=== PATIENT | female | born 1935 | race Caucasian/White ===

== ENCOUNTER 2018-05-21 20:49 | Inpatient (IN) | payer MEDICARE, BC ==
[~2018-05-21] VITALS: Ht 160 cm; Wt 56.7 kg
--- NOTE | ~2018-05-21 | CN ---
PATIENT NAME:KOFI CORTES MEDICAL RECORD: [id number] : 31 LOCATION:INOCENCIO2304 ADMIT DATE: 05/21/18 ACCOUNT: [id number] CONSULTING PHYSICIAN: GRAEME FOFANA MD REFERRING PHYSICIAN: TANNA CHOW MD DATE OF CONSULTATION: 05/26/2018 HISTORY OF PRESENT ILLNESS: An 83-year-old female with history of hypertension, dyslipidemia, admitted with CVA, is outside of window for TPA, is actually recovering fairly nicely, was found to have atrial fibrillation with RVR. This responded nicely to IV Cordarone. We are asked to see her concerning her cardiovascular status. PAST MEDICAL HISTORY: Includes; 1. History of hypertension. 2. Hyperlipidemia. 3. Hypothyroidism, on replacement. 4. Gouty arthritis. 5. Cerebrovascular disease as described above. ALLERGIES: None known. MEDICATIONS: Include Lotensin 20 every day, Pravachol 20 every day, amlodipine 5 every day, Paxil 40 every day, Neurontin a gram every morning, aspirin 81 every day, Synthroid 137 mcg every day. SOCIAL HISTORY: Lives here in [place]. Nonsmoker, nondrinker. Good family support. Previously able to take care of her ADLs. PHYSICAL EXAMINATION: GENERAL: Pleasant female in no acute distress. Some mild dysarthria and recovers well. VITAL SIGNS: Blood pressure 147/82, pulse 96 and regular currently. HEENT: Normocephalic, atraumatic. NECK: No bruits noted. HEART: Regular, II/ systolic ejection murmur. LUNGS: Clear. ABDOMEN: Soft, nontender. EXTREMITIES: Pulses 2+. No edema. IMPRESSION: Atrial fibrillation. Responding nicely to Cordarone. Given cerebrovascular accident, we will switch her to p.o. amiodarone. We will consider changing once of this antiplatelet to a NOAC given underlying atrial fibrillation. TRANSINT:[id number] Voice Confirmation ID: [id number] DOCUMENT ID: [id number] CONSULT REPORT [id number] KOFI CORTES GREGORY A MD at 1546 CC: [id number] DICTATION DATE: 05/26/18 1201 LDR RN: 05/26/18 1250 [place] [id number]
--- NOTE | ~2018-05-21 | CN ---
PATIENT NAME:KOFI CORTES MEDICAL RECORD: [id number] : 31 LOCATION:DAVE.2304 ADMIT DATE: 05/21/18 ACCOUNT: [id number] CONSULTING PHYSICIAN: ARABELLA CLEMENTS MD REFERRING PHYSICIAN: TANNA CHOW MD DATE OF CONSULTATION: 05/21/2018 This is emergency room consult at 10:30 at night. BRIEF HISTORY: Ms. Cortes is an inhabitant of an assisted living facility. She has a previous history of CVA affecting her right side. Her family cannot provide any more detail on that. She had sudden onset of right-sided lower facial droop today, followed by slurred speech and a hoarse voice and intermittent confusion. She was brought to the Emergency Room. She was outside the window for TPA. PAST MEDICAL HISTORY: Significant for severe hypertension. PHYSICAL EXAMINATION: VITAL SIGNS: Her blood pressure was 210 systolic over 90 diastolic. NEUROLOGIC: Reveals her to be awake, alert, following commands in all 4 extremities. She has a hoarse raspy voice. She has cerebellar pattern of speech and dysarthria. She has slightly right perioral droop and a mild right-sided Halima syndrome. RADIOLOGIC DATA: Her head CT shows no acute CVA, however, it is concerning for thrombosis in the right PICA artery. 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 At this point, we will place her on dual baby aspirin and loading dose of Plavix and observe her in the ICU. She will be n.p.o. due to aspiration concerns. We will observe her with serial neuro checks in the ICU and supportive care. I have discussed at length with her family her care and treatment and plans, and they agree with the care and treatment plan. TRANSINT:[id number] Voice Confirmation ID: [id number] DOCUMENT ID: [id number] ARABELLA CLEMENTS MD at 0853 CC: [id number] DICTATION DATE: 05/21/18 2317 QUILL WORKER: 05/22/18 0614 DIS IN 05/28/18 [place] [id number] [place] [id number]
--- NOTE | ~2018-05-21 | MORECARE ---
CASE MANAGEMENT DISCHARGE SUMMARY PATIENT: KOFI CORTES UNIT: [id number] ADM DATE: 05/21/18 AGE: 83 : 33 SEX: F ROOM/BED: D.2304 AUTHOR: MARIELLE,DOC PHYSICIAN: REFERRING PHYSICIAN: TANNA CHOW MD DATE OF SERVICE: 05/28/18 Discharge Plan Patient Name: KOFI CORTES Facility: [facility]:[place] : 1935 Planned Disposition: Inpatient Rehab Anticipated Discharge Date: Discharge Date: Expected LOS: Initial Reviewer: [email or web address] Initial Review Date: 05/22/2018 Generated: 05/28/18 1:57 pm Comments DCP- Discharge Planning Updated by [email or web address]: Nallely Bean on 05/28/18 11:[address] Patient Name: KOFI CORTES Admission Status: ER Accout number: [id number] Admission Date: 05-21-2018 : 1935 Admission Diagnosis:CEREBRAL INFARCTION, UNSPECIFIED Attending: TANNA CHOW Current LOS: 7 Anticipated DC Date: Planned Disposition: Inpatient Rehab Primary Insurance: MEDICARE A & B Discharge Planning Comments: CM spoke with patient and daughter at bedside. Plan is for patient to go to inpatient rehab for therapy today. Patient was very independent prior to admission. IMM explained and signed 05/28/18 @ 12:45. CM will continue to follow and assist with discharge planning / needs. Jeep Driver: Nallely Bean DCPIA - Discharge Planning Initial Assessment Updated by [email or web address]: Nallely Bean on 05/28/18 12:51 pm * Is the patient Alert and Oriented? Yes * How many steps to enter\exit or inside your home? * PCP Florina * Pharmacy [facility] * Preadmission Environment Home Alone * ADLs Independent * Equipment Oxygen * List name and contact numbers for known caregivers / representatives who currently or will assist patient after discharge: Shellie Romo) daughter [phone], Devyn Cortes son [phone]. Kaushal Cortes son [phone] * Verbal permission to speak to the caregivers and representatives has been obtained from the patient. Yes * Community resources currently utilized None * Additional services required to return to the preadmission environment? No * Can the patient safely return to the preadmission environment? Yes * Has this patient been hospitalized within the prior 30 days at any hospital? No Coverage Notice Reviewer: [email or web address] Therese Bean Notice Issued Date-Time: 05/28/2018 12:45 Notice Type: IM Discharge Notice Notice Delivered To: Family Member Relationship to Patient: Daughter Mill Operator Head Name: Shellie Ryan Delivery Method: HAND - Hand Delivered Viktoria Days: Prior Verbal Notification: Recipient Understood Notice: Yes Recipient Signature: Yes Med Rec Note Co-signed by Attending: Coverage Notice Comment: Last DP export: 05/28/18 11:49 Patient Name: KOFI CORTES Page 29083 at 1257 All edits/amendments must be made on the electronic document DICTATION DATE: 05/28/18 1257 SUPERSONIC ENGINEER: RIN 05/28/18 1257 RPT#: [id number] DC DATE: STATUS: ADM IN [facility] [address] [place] [address] END OF REPORT
--- NOTE | ~2018-05-21 | MORECARE ---
CASE MANAGEMENT DISCHARGE SUMMARY PATIENT: KOFI CORTES UNIT: [id number] ADM DATE: 05/21/18 AGE: 83 : 33 SEX: F ROOM/BED: D.2304 AUTHOR: MARIELLE,DOC PHYSICIAN: REFERRING PHYSICIAN: TANNA CHOW MD DATE OF SERVICE: 05/28/18 Discharge Plan Patient Name: KOFI CORTES Facility: [facility]:[place] : 1935 Planned Disposition: Inpatient Rehab Anticipated Discharge Date: Discharge Date: 05/28/2018 Expected LOS: Initial Reviewer: [email or web address] Initial Review Date: 05/22/2018 Generated: 05/28/18 5:28 pm Comments DCP- Discharge Planning Updated by [email or web address]: Nallely Bean on 05/28/18 11:[address] Patient Name: KOFI CORTES Admission Status: ER Accout number: [id number] Admission Date: 05-21-2018 : 1935 Admission Diagnosis:CEREBRAL INFARCTION, UNSPECIFIED Attending: TANNA CHOW Current LOS: 7 Anticipated DC Date: Planned Disposition: Inpatient Rehab Primary Insurance: MEDICARE A & B Discharge Planning Comments: CM spoke with patient and daughter at bedside. Plan is for patient to go to inpatient rehab for therapy today. Patient was very independent prior to admission. IMM explained and signed 05/28/18 @ 12:45. CM will continue to follow and assist with discharge planning / needs. Materials Inspector: Nallely Bean DCPIA - Discharge Planning Initial Assessment Updated by [email or web address]: Nallely Bean on 05/28/18 12:51 pm * Is the patient Alert and Oriented? Yes * How many steps to enter\exit or inside your home? * PCP Florina * Pharmacy [facility] * Preadmission Environment Home Alone * ADLs Independent * Equipment Oxygen * List name and contact numbers for known caregivers / representatives who currently or will assist patient after discharge: Shellie FORDE) daughter [phone], Devyn Cortes son [phone]. Kaushal Cortes son [phone] * Verbal permission to speak to the caregivers and representatives has been obtained from the patient. Yes * Community resources currently utilized None * Additional services required to return to the preadmission environment? No * Can the patient safely return to the preadmission environment? Yes * Has this patient been hospitalized within the prior 30 days at any hospital? No Coverage Notice Reviewer: [email or web address] Therese Bean Notice Issued Date-Time: 05/28/2018 12:45 Notice Type: IM Discharge Notice Notice Delivered To: Family Member Relationship to Patient: Daughter Inside B2B Sales Name: Shellie Ryan Delivery Method: HAND - Hand Delivered Viktoria Days: Prior Verbal Notification: Recipient Understood Notice: Yes Recipient Signature: Yes Med Rec Note Co-signed by Attending: Coverage Notice Comment: Last DP export: 05/28/18 12:06 Patient Name: KOFI CORTES Page 12636 at 1628 All edits/amendments must be made on the electronic document DICTATION DATE: 05/28/181627 OIL BURNER MECHANIC: RIN 05/28/181627 RPT#: [id number] DC DATE:05/28/18 STATUS: DIS IN [facility] [address] [place] [address] END OF REPORT
--- NOTE | ~2018-05-21 | MORECARE ---
CASE MANAGEMENT DISCHARGE SUMMARY PATIENT: KOFI CORTES UNIT: [id number] ADM DATE: 05/21/18 AGE: 83 : 33 SEX: F ROOM/BED: D.2304 AUTHOR: MARIELLE,DOC PHYSICIAN: REFERRING PHYSICIAN: TANNA CHOW MD DATE OF SERVICE: 05/28/18 Discharge Plan Patient Name: KOFI CORTES Facility: [facility]:[place] : 1935 Planned Disposition: Inpatient Rehab Anticipated Discharge Date: Discharge Date: Expected LOS: Initial Reviewer: [email or web address] Initial Review Date: 05/22/2018 Generated: 05/28/18 2:06 pm Comments DCP- Discharge Planning Updated by [id number]: Nallely Bean on 05/28/18 11:[address] Patient Name: KOFI CORTES Admission Status: ER Accout number: [id number] Admission Date: 05-21-2018 : 1935 Admission Diagnosis:CEREBRAL INFARCTION, UNSPECIFIED Attending: TANNA CHOW Current LOS: 7 Anticipated DC Date: Planned Disposition: Inpatient Rehab Primary Insurance: MEDICARE A & B Discharge Planning Comments: CM spoke with patient and daughter at bedside. Plan is for patient to go to inpatient rehab for therapy today. Patient was very independent prior to admission. IMM explained and signed 05/28/18 @ 12:45. CM will continue to follow and assist with discharge planning / needs. Concrete Craftsman: Nallely Bean DCPIA - Discharge Planning Initial Assessment Updated by [email or web address]: Nallely Bean on 05/28/18 12:51 pm * Is the patient Alert and Oriented? Yes * How many steps to enter\exit or inside your home? * PCP Florina * Pharmacy [facility] * Preadmission Environment Home Alone * ADLs Independent * Equipment Oxygen * List name and contact numbers for known caregivers / representatives who currently or will assist patient after discharge: Shellie Romo) daughter [phone], Devyn Cortes son [phone]. Kaushal Cortes son [phone] * Verbal permission to speak to the caregivers and representatives has been obtained from the patient. Yes * Community resources currently utilized None * Additional services required to return to the preadmission environment? No * Can the patient safely return to the preadmission environment? Yes * Has this patient been hospitalized within the prior 30 days at any hospital? No Coverage Notice Reviewer: [email or web address] Therese Bean Notice Issued Date-Time: 05/28/2018 12:45 Notice Type: IM Discharge Notice Notice Delivered To: Family Member Relationship to Patient: Daughter Reed Press Feeder Name: Shellie Ryan Delivery Method: HAND - Hand Delivered Viktoria Days: Prior Verbal Notification: Recipient Understood Notice: Yes Recipient Signature: Yes Med Rec Note Co-signed by Attending: Coverage Notice Comment: Last DP export: 05/28/18 11:57 Patient Name: KOFI CORTES Page 68434 at 1306 All edits/amendments must be made on the electronic document DICTATION DATE: 05/28/18 1306 ELECTRO MECHANICAL ENGINEER: RIN 05/28/18 1306 RPT#: [id number] DC DATE: STATUS: ADM IN [facility] [address] [place] [address] END OF REPORT
--- NOTE | ~2018-05-21 | EC ---
PATIENT:KOFI CORTES DATE OF SERVICE: 05/21/18 SEX: F MEDICAL RECORD: [id number] DATE OF : 31 LOCATION:[facility] D.230 AGE OF PATIENT: 83 ADMISSION DATE: 05/21/18 REFERRING PHYSICIAN: INTERPRETING PHYSICIAN: KARIN DALE MD ECHOCARDIOGRAM REPORT ECHO CHARGES 4 ECHO COMPLETE Date: 05/23/18 CLINICAL DIAGNOSIS: CVA ECHOCARDIOGRAPHIC MEASUREMENTS (adult normal given) AC root (d.<3.7cm) 3.5 cm LV Septum d (<1.2 cm> 1.5 cm Valve Excursion 1.4 cm LV Septum (systole) 1.8 cm Left Atria (s.<4.0cm> 3.6 cm LVPW d(<1.2cm) 1.0 cm RV (d.<2.3cm) 2.3 cm LVPW (sytole) 1.3 cm LV diastole(<5.6CM) 4.1 cm MV E-F(>70mm/sec) cm LV systole 3.2 cm LVOT Diameter 1.6 cm MV exc.(>10mm) cm Est.ejection fraction (50-75%) % DOPPLER: LVIT cm/sec A 170 cm/sec E 113 cm/sec LA cm/sec RVSP 31 mmHg LVOT 138 cm/sec AOP1/2T m/s Asc. Ao 233 cm/sec RVOT 111 cm/sec RA cm/sec PA 106 cm/sec AV Gradient Peak 21.7 mmHg AV Mean 13.5 mmHg AV Area 1.5 cm MV Gradient Peak 7.3 mmHg MV Mean 2.9 mmHg MV Area cm COMMENTS: Wrapper And Preserver: Flako [facility] Tour Sales Representative: 1 Dr. Dale TAPE# PACS Pericardial Effusion N DATE OF SERVICE: FINDINGS: 1. Left ventricular chamber size is within normal limits. Left ventricular systolic function is normal. Overall ejection fraction is estimated at 55%. 2. Left atrium, right atrium, and right ventricle chamber sizes are within normal limit. 3. Valvular structures have normal structure and motion. 4. Doppler interrogation reveals mild tricuspid regurgitation. No other valvular insufficiency or stenosis. Pulmonary systolic pressure is estimated at ECHOCARDIOGRAM REPORT [id number] KOFI CORTES 31 mmHg. 5. No evidence of pericardial effusion or left ventricular thrombus. TRANSINT:[id number] Voice Confirmation ID: [id number] DOCUMENT ID: [id number] KARIN DALE MD at 1324 CC: [id number] DICTATION DATE: 05/23/18 1347 INCLINOMETER TESTER: 05/23/18 1614 ADM IN [address] [place] [id number]
--- NOTE | ~2018-05-21 | MORECARE ---
CASE MANAGEMENT DISCHARGE SUMMARY PATIENT: KOFI CORTES UNIT: [id number] ADM DATE: 05/21/18 AGE: 83 : 33 SEX: F ROOM/BED: D.2304 AUTHOR: CAROLINE PALOMARES PHYSICIAN: REFERRING PHYSICIAN: TANNA CHOW MD DATE OF SERVICE: 05/28/18 Discharge Plan Patient Name: KOFI CORTES Facility: [facility]:[place] : 1935 Planned Disposition: Inpatient Rehab Anticipated Discharge Date: Discharge Date: Expected LOS: Initial Reviewer: [email or web address] Initial Review Date: 05/22/2018 Generated: 05/28/18 1:49 pm Patient Name: KOFI CORTES Page 45144 at 1249 All edits/amendments must be made on the electronic document DICTATION DATE: 05/28/181247 RN PACU: RIN 05/28/18 1248 RPT#: [id number] DC DATE: STATUS: ADM IN [facility] [address] [place] [address] END OF REPORT
[2018-05-21] MEDS ORDERED: ZYLOPRIM100 MG PO (21:07)
[2018-05-21] MEDS ORDERED: PAXIL40 MG PO (21:08)
[2018-05-21] MEDS ORDERED: KLOR-CON 88 MEQ PO (21:08)
[2018-05-21] MEDS ORDERED: LOTENSIN20 MG PO (21:09)
[2018-05-21] MEDS ORDERED: SYNTHROID137 MCG PO (21:09)
[2018-05-21] MEDS ORDERED: LUTEIN20 MG PO (21:10)
[2018-05-21] MEDS ORDERED: BAYER CHEWABLE81 MG PO (21:10)
[2018-05-21] MEDS ORDERED: VITAMIN D31000 UNIT PO (21:10)
[2018-05-21] MEDS ORDERED: GABAPENTIN100 MG PO (21:10)
[2018-05-21] MEDS ORDERED: PRAVACHOL20 MG PO (21:11)
[2018-05-21] MEDS ORDERED: NORVASC5 MG PO (21:11)
[2018-05-21 21:16] LABS: BASOPHILS 0.3 % (0-2); EOSINOPHILS 3.7 % (0-7); HEMATOCRIT 39.9 % (36.0-48.0); HEMOGLOBIN 12.8 g/dL (12-16); IMMATURE GRANULOCYTES 0.2 % (0-5); LYMPHOCYTES 26.7 % (15-50); MCH 30.2 pg (26.0-34.0); MCHC 32.1 g/dL (31.0-37.0); MCV 94.1 fL (80.0-100.0); MEAN PLATELET VOLUME 10.9 fL (7.4-10.4); MONOCYTES 9.5 % (2-11); NEUTROPHILS 59.6 % (40-80); PLATELET COUNT 214 10x3/uL (130-400); RBC 4.24 10x6/uL (4.00-5.40); RDW 14.4 % (11.5-14.5); WBC 6.2 10x3/uL (4.8-10.8)
[2018-05-21 21:21] VITALS: BP 212/93
[2018-05-21 21:25] LABS: APTT 27.9 SECONDS (22.8-39.4); INR 0.89 (0.85-1.17); PROTIME 11.6 SECONDS (11.6-15.0)
[2018-05-21 21:45] LABS: ALBUMIN 3.7 g/dL (3.4-5.0); ALKALINE PHOSPHATASE 78 U/L (46-116); ALT (SGPT) 11 U/L (10-68); BILIRUBIN - TOTAL 0.23 mg/dL (0.2-1.3); CALC OSMOLALITY 284 mosm/kg (275-300); CALCIUM 9.9 mg/dL (8.5-10.1); CARBON DIOXIDE 31.9 mmol/L (21.0-32.0); CHLORIDE - SERUM 101 mmol/L (98-107); CKMB 1.5 U/L (0.0-3.6); CREATINE KINASE 56 UL (21-215); CREATININE - SERUM 0.8 mg/dL (0.6-1.3); GLUCOSE 90 mg/dL (74-106); MAGNESIUM - SERUM 1.5 mg/dL (1.8-2.4); POTASSIUM - SERUM 3.7 mmol/L (3.5-5.1); PROTEIN - SERUM 8.3 g/dL (6.4-8.2); SODIUM 142 mmol/L (136-145); THYROID STIMULATING HORMONE 2.04 uIU/mL (0.36-3.74); UREA NITROGEN 17 mg/dL (7-18); eGFR NON AFRICAN AMERICAN 72 mL/min (90-120)
[2018-05-21 21:47] LABS: TROPONIN-I < 0.017 ng/mL (0.000-0.060)
[2018-05-22] VITALS (23 sets, daily range): BP systolic 143–237; BP diastolic 75–124; Ht 160 cm; Wt 56.7 kg
[2018-05-22 03:04] LABS: APPEARANCE CLEAR (CLEAR); BILIRUBIN NEGATIVE (NEGATIVE); COLOR YELLOW (YELLOW); GLUCOSE NEGATIVE (NEGATIVE); KETONE NEGATIVE (NEGATIVE); NITRITE NEGATIVE (NEGATIVE); PROTEIN 2+ mg/dL (NEGATIVE); SPECIFIC GRAVITY 1.015 (1.005-1.020); UROBILINOGEN NORMAL (NORMAL)
[2018-05-22 04:09] LABS: BASOPHILS 0.4 % (0-2); EOSINOPHILS 2.9 % (0-7); HEMATOCRIT 36.3 % (36.0-48.0); HEMOGLOBIN 11.9 g/dL (12-16); IMMATURE GRANULOCYTES 0.3 % (0-5); LYMPHOCYTES 22.9 % (15-50); MCH 30.2 pg (26.0-34.0); MCHC 32.8 g/dL (31.0-37.0); MEAN PLATELET VOLUME 11.5 fL (7.4-10.4); MONOCYTES 12.1 % (2-11); NEUTROPHILS 61.4 % (40-80); PLATELET COUNT 222 10x3/uL (130-400); RBC 3.94 10x6/uL (4.00-5.40); RDW 14.2 % (11.5-14.5); WBC 7.2 10x3/uL (4.8-10.8)
[2018-05-22 04:20] LABS: INR 0.93 (0.85-1.17); PROTIME 11.9 SECONDS (11.6-15.0)
[2018-05-22 04:26] LABS: MCV 92.1 fL (80.0-100.0)
[2018-05-22 04:30] LABS: CALC OSMOLALITY 279 mosm/kg (275-300); CALCIUM 9.9 mg/dL (8.5-10.1); CARBON DIOXIDE 31.2 mmol/L (21.0-32.0); CHLORIDE - SERUM 100 mmol/L (98-107); CHOL - HDL RATIO 2.7 ratio (2.3-4.1); CHOLESTEROL, TOTAL 200 mg/dL (0-200); CREATININE - SERUM 0.6 mg/dL (0.6-1.3); GLUCOSE 95 mg/dL (74-106); HDL CHOLESTEROL 73 mg/dL (32-96); LDL CHOLESTEROL 110 mg/dL (0-100); LDL-HDL RATIO 1.5 ratio (1.5-3.5); MAGNESIUM - SERUM 1.3 mg/dL (1.8-2.4); POTASSIUM - SERUM 3.4 mmol/L (3.5-5.1); SODIUM 140 mmol/L (136-145); TRIGLYCERIDE 85 mg/dL (30-200); UREA NITROGEN 14 mg/dL (7-18); eGFR NON AFRICAN AMERICAN > 90 mL/min (90-120)
[2018-05-22 15:54] LABS: MAGNESIUM - SERUM 2.4 mg/dL (1.8-2.4); POTASSIUM - SERUM 4.1 mmol/L (3.5-5.1)
[2018-05-23] VITALS (13 sets, daily range): BP systolic 159–198; BP diastolic 77–131
[2018-05-23 03:15] LABS: BASOPHILS 0.1 % (0-2); EOSINOPHILS 1.3 % (0-7); HEMOGLOBIN 11.4 g/dL (12-16); IMMATURE GRANULOCYTES 0.1 % (0-5); MCH 29.6 pg (26.0-34.0); MCHC 32.6 g/dL (31.0-37.0); MCV 90.9 fL (80.0-100.0); MEAN PLATELET VOLUME 10.9 fL (7.4-10.4); MONOCYTES 8.5 % (2-11); PLATELET COUNT 203 10x3/uL (130-400); RBC 3.85 10x6/uL (4.00-5.40); RDW 14.7 % (11.5-14.5); WBC 7.9 10x3/uL (4.8-10.8)
[2018-05-23 03:39] LABS: % SATURATION 22 % (15-55); IRON 59 ug/dl (35-150); TOTAL IRON BIND CAPACITY 261 ug/dl (260-445); UNSAT IRON BIND CAPACITY 202 ug/dl (150-375)
[2018-05-23 03:56] LABS: ALBUMIN 2.9 g/dL (3.4-5.0); ALKALINE PHOSPHATASE 56 U/L (46-116); ALT (SGPT) 10 U/L (10-68); BILIRUBIN - TOTAL 0.39 mg/dL (0.2-1.3); CALCIUM 8.7 mg/dL (8.5-10.1); CHLORIDE - SERUM 100 mmol/L (98-107); CHOL - HDL RATIO 2.5 ratio (2.3-4.1); CHOLESTEROL, TOTAL 174 mg/dL (0-200); CREATININE - SERUM 0.6 mg/dL (0.6-1.3); FERRITIN 55 ng/mL (3-244); GLUCOSE 100 mg/dL (74-106); HDL CHOLESTEROL 71 mg/dL (32-96); LDL CHOLESTEROL 90 mg/dL (0-100); LDL-HDL RATIO 1.3 ratio (1.5-3.5); MAGNESIUM - SERUM 1.8 mg/dL (1.8-2.4); POTASSIUM - SERUM 3.9 mmol/L (3.5-5.1); PROTEIN - SERUM 6.7 g/dL (6.4-8.2); SODIUM 136 mmol/L (136-145); THYROID STIMULATING HORMONE 1.62 uIU/mL (0.36-3.74); TRIGLYCERIDE 66 mg/dL (30-200); eGFR NON AFRICAN AMERICAN > 90 mL/min (90-120)
[2018-05-23 03:59] LABS: CALC OSMOLALITY 270 mosm/kg (275-300); CARBON DIOXIDE 22.7 mmol/L (21.0-32.0); UREA NITROGEN 10 mg/dL (7-18)
[2018-05-24 03:00] VITALS: BP 155/51
[2018-05-24 07:00] VITALS: BP 191/94
[2018-05-24 11:00] VITALS: BP 180/87
[2018-05-24 15:00] VITALS: BP 169/77
[2018-05-24 19:00] VITALS: BP 184/92
[2018-05-24 23:00] VITALS: BP 166/74
[2018-05-25] VITALS (9 sets, daily range): BP systolic 141–191; BP diastolic 75–105
[2018-05-26] VITALS (12 sets, daily range): BP systolic 130–194; BP diastolic 69–140
[2018-05-27 04:45] LABS: BASOPHILS 0.1 % (0-2); EOSINOPHILS 0.6 % (0-7); HEMATOCRIT 33.6 % (36.0-48.0); HEMOGLOBIN 10.9 g/dL (12-16); IMMATURE GRANULOCYTES 0.4 % (0-5); LYMPHOCYTES 7.1 % (15-50); MCH 29.9 pg (26.0-34.0); MCHC 32.4 g/dL (31.0-37.0); MCV 92.1 fL (80.0-100.0); MEAN PLATELET VOLUME 11.7 fL (7.4-10.4); MONOCYTES 17.4 % (2-11); NEUTROPHILS 74.4 % (40-80); PLATELET COUNT 198 10x3/uL (130-400); RBC 3.65 10x6/uL (4.00-5.40); WBC 8.5 10x3/uL (4.8-10.8)
[2018-05-27 04:53] LABS: CALC OSMOLALITY 277 mosm/kg (275-300); CALCIUM 9.3 mg/dL (8.5-10.1); CARBON DIOXIDE 26.9 mmol/L (21.0-32.0); CHLORIDE - SERUM 101 mmol/L (98-107); CREATININE - SERUM 0.7 mg/dL (0.6-1.3); GLUCOSE 113 mg/dL (74-106); POTASSIUM - SERUM 3.4 mmol/L (3.5-5.1); SODIUM 139 mmol/L (136-145); UREA NITROGEN 10 mg/dL (7-18); eGFR NON AFRICAN AMERICAN 84 mL/min (90-120)
[2018-05-27 07:00] VITALS: BP 178/141
[2018-05-27 11:00] VITALS: BP 167/89
[2018-05-27 15:00] VITALS: BP 151/81
[2018-05-27 19:00] VITALS: BP 127/69
[2018-05-27 21:01] VITALS: BP 191/94
[2018-05-27 23:00] VITALS: BP 143/88
[2018-05-28 03:00] VITALS: BP 136/73
[2018-05-28 06:21] LABS: BASOPHILS 0 % (0-2); EOSINOPHILS 0 % (0-7); HEMATOCRIT 32.6 % (36.0-48.0); HEMOGLOBIN 10.4 g/dL (12-16); IMMATURE GRANULOCYTES 0.2 % (0-5); LYMPHOCYTES 3.7 % (15-50); MCH 29.6 pg (26.0-34.0); MCHC 31.9 g/dL (31.0-37.0); MCV 92.9 fL (80.0-100.0); MEAN PLATELET VOLUME 11.5 fL (7.4-10.4); MONOCYTES 4.3 % (2-11); NEUTROPHILS 91.8 % (40-80); PLATELET COUNT 202 10x3/uL (130-400); RBC 3.51 10x6/uL (4.00-5.40); RDW 14.9 % (11.5-14.5); WBC 9.5 10x3/uL (4.8-10.8)
[2018-05-28 06:56] LABS: ALBUMIN 2.5 g/dL (3.4-5.0); ANION GAP 13.7 mmol/L (8-16); BILIRUBIN - TOTAL 0.33 mg/dL (0.2-1.3); CALCIUM 9.6 mg/dL (8.5-10.1); CARBON DIOXIDE 27.1 mmol/L (21.0-32.0); PROTEIN - SERUM 6.7 g/dL (6.4-8.2)
[2018-05-28 06:57] LABS: CREATININE - SERUM 0.9 mg/dL (0.6-1.3)
[2018-05-28 06:58] LABS: POTASSIUM - SERUM 4.8 mmol/L (3.5-5.1)
[2018-05-28 07:00] VITALS: BP 136/73
[2018-05-28 14:00] VITALS: BP 133/70
[2018-05-28] MEDS ORDERED: AMIODARONE HCL200 MG PO (15:51)
[2018-05-29] MEDS ORDERED: ELIQUIS2.5 MG PO (13:12)
[2018-05-29] MEDS ORDERED: VOLTAREN100 GM TOPICAL (13:14)
[2018-05-29] MEDS ORDERED: SOLU-MEDRO40 MG/1 M1 IV (13:15)
[2018-05-29] MEDS ORDERED: PANTOPRAZOLE (13:16)
[2018-05-29] MEDS ORDERED: PANTOPRAZOLE IV (13:16)
[2018-05-29] MEDS ORDERED: ARTIFICIAL TEAR15 ML EACH EYE (13:17)
[2018-05-29] MEDS ORDERED: ULTRAM50 MG PO (13:17)
== END 2018-05-28 15:57 | DRG 65 ==
LOC: D.ER 20:49 → D.MS 23:05 → D.ICU 23:05
PROVIDERS: Family Medicine; Family Medicine Adult Medicine
DX: I63.9 Cerebral infarction, unspecified (principal); F32.1 Major depressive disorder, single episode, moderate; I69.392 Facial weakness following cerebral infarction; I48.91 Unspecified atrial fibrillation; I10 Essential (primary) hypertension; K21.9 Gastro-esophageal reflux disease without esophagitis; M10.9 Gout, unspecified; E03.9 Hypothyroidism, unspecified; R47.1 Dysarthria and anarthria

== ENCOUNTER 2018-05-28 15:29 | Inpatient (IN) | payer MEDICARE, BC ==
[~2018-05-28] VITALS: Ht 142.2 cm; Wt 56.7 kg
[~2018-05-28 15:29] MED LIST: BAYER CHEWABLE81 MG PO; GABAPENTIN100 MG PO; KLOR-CON 88 MEQ PO; LOTENSIN20 MG PO; LUTEIN20 MG PO; NORVASC5 MG PO; PAXIL40 MG PO; PRAVACHOL20 MG PO; SYNTHROID137 MCG PO; VITAMIN D31000 UNIT PO; ZYLOPRIM100 MG PO
[2018-05-28] MEDS ORDERED: AMIODARONE HCL200 MG PO (15:51)
[2018-05-28 19:00] VITALS: BP 133/68
[2018-05-28 19:47] VITALS: BP 133/68; BMI 28.0
[2018-05-29 06:49] LABS: BASOPHILS 0 % (0-2); EOSINOPHILS 0 % (0-7); HEMATOCRIT 33.6 % (36.0-48.0); HEMOGLOBIN 11.2 g/dL (12-16); IMMATURE GRANULOCYTES 0.2 % (0-5); LYMPHOCYTES 2.9 % (15-50); MCH 30.6 pg (26.0-34.0); MCHC 33.3 g/dL (31.0-37.0); MCV 91.8 fL (80.0-100.0); MEAN PLATELET VOLUME 11.3 fL (7.4-10.4); MONOCYTES 6.4 % (2-11); NEUTROPHILS 90.5 % (40-80); RBC 3.66 10x6/uL (4.00-5.40); WBC 11.6 10x3/uL (4.8-10.8)
[2018-05-29 06:50] LABS: PLATELET COUNT 279 10x3/uL (130-400)
[2018-05-29 07:02] LABS: ANION GAP 14.2 mmol/L (8-16); CALCIUM 10.6 mg/dL (8.5-10.1); CARBON DIOXIDE 26.4 mmol/L (21.0-32.0); CREATININE - SERUM 1.1 mg/dL (0.6-1.3); POTASSIUM - SERUM 4.6 mmol/L (3.5-5.1)
[2018-05-29 08:00] VITALS: BP 150/102
[2018-05-29 11:53] VITALS: Ht 142.2 cm; Wt 56.7 kg
[2018-05-29] MEDS ORDERED: ELIQUIS2.5 MG PO (13:12)
[2018-05-29] MEDS ORDERED: VOLTAREN100 GM TOPICAL (13:14)
[2018-05-29] MEDS ORDERED: SOLU-MEDRO40 MG/1 M1 IV (13:15)
[2018-05-29] MEDS ORDERED: PANTOPRAZOLE (13:16)
[2018-05-29] MEDS ORDERED: PANTOPRAZOLE IV (13:16)
[2018-05-29] MEDS ORDERED: ULTRAM50 MG PO (13:17)
[2018-05-29] MEDS ORDERED: ARTIFICIAL TEAR15 ML EACH EYE (13:17)
[2018-05-29 19:00] VITALS: BP 177/83
[2018-05-30 05:26] LABS: BASOPHILS 0 % (0-2); EOSINOPHILS 0 % (0-7); HEMATOCRIT 35.2 % (36.0-48.0); HEMOGLOBIN 11.5 g/dL (12-16); IMMATURE GRANULOCYTES 0.5 % (0-5); LYMPHOCYTES 4.3 % (15-50); MCH 29.8 pg (26.0-34.0); MCHC 32.7 g/dL (31.0-37.0); MCV 91.2 fL (80.0-100.0); MEAN PLATELET VOLUME 11.3 fL (7.4-10.4); MONOCYTES 4.9 % (2-11); NEUTROPHILS 90.3 % (40-80); PLATELET COUNT 310 10x3/uL (130-400); RBC 3.86 10x6/uL (4.00-5.40); RDW 14.9 % (11.5-14.5)
[2018-05-30 05:27] LABS: WBC 7.9 10x3/uL (4.8-10.8)
[2018-05-30 06:04] LABS: ANION GAP 17.8 mmol/L (8-16); CALCIUM 10.2 mg/dL (8.5-10.1); CARBON DIOXIDE 24.2 mmol/L (21.0-32.0); CREATININE - SERUM 0.9 mg/dL (0.6-1.3)
[2018-05-30 08:00] VITALS: BP 175/104
[2018-05-30 19:00] VITALS: BP 194/89
[2018-05-31 07:25] LABS: CALC OSMOLALITY 288 mosm/kg (275-300); CALCIUM 10.2 mg/dL (8.5-10.1); CHLORIDE - SERUM 103 mmol/L (98-107); CREATININE - SERUM 0.7 mg/dL (0.6-1.3); GLUCOSE 104 mg/dL (74-106); SODIUM 139 mmol/L (136-145); UREA NITROGEN 43 mg/dL (7-18); eGFR NON AFRICAN AMERICAN 84 mL/min (90-120)
[2018-05-31 07:27] LABS: CARBON DIOXIDE 30.3 mmol/L (21.0-32.0); POTASSIUM - SERUM 4.3 mmol/L (3.5-5.1)
[2018-05-31 08:55] VITALS: BP 177/87
[2018-05-31 23:16] VITALS: BP 163/81
[2018-06-01 08:00] VITALS: BP 169/78
[2018-06-01 20:47] VITALS: BP 121/74
[2018-06-02 06:50] LABS: BASOPHILS 0 % (0-2); EOSINOPHILS 2.8 % (0-7); HEMATOCRIT 31.4 % (36.0-48.0); IMMATURE GRANULOCYTES 0.7 % (0-5); LYMPHOCYTES 14.1 % (15-50); MCH 29.2 pg (26.0-34.0); MCHC 31.8 g/dL (31.0-37.0); MCV 91.8 fL (80.0-100.0); MEAN PLATELET VOLUME 10.1 fL (7.4-10.4); MONOCYTES 16.2 % (2-11); NEUTROPHILS 66.2 % (40-80); PLATELET COUNT 281 10x3/uL (130-400); RBC 3.42 10x6/uL (4.00-5.40); RDW 14.7 % (11.5-14.5); WBC 8.1 10x3/uL (4.8-10.8)
[2018-06-02 07:12] LABS: CALC OSMOLALITY 284 mosm/kg (275-300); CALCIUM 9.5 mg/dL (8.5-10.1); CHLORIDE - SERUM 103 mmol/L (98-107); CREATININE - SERUM 0.7 mg/dL (0.6-1.3); GLUCOSE 91 mg/dL (74-106); POTASSIUM - SERUM 3.9 mmol/L (3.5-5.1); SODIUM 141 mmol/L (136-145); UREA NITROGEN 24 mg/dL (7-18); eGFR NON AFRICAN AMERICAN 84 mL/min (90-120)
[2018-06-02 08:03] VITALS: BP 167/85
[2018-06-02 19:02] VITALS: BP 203/88
[2018-06-03 07:55] VITALS: BP 185/92
[2018-06-03 19:30] VITALS: BP 183/90
[2018-06-04 06:13] LABS: BASOPHILS 0 % (0-2); HEMATOCRIT 34.2 % (36.0-48.0); IMMATURE GRANULOCYTES 0.7 % (0-5); LYMPHOCYTES 10.3 % (15-50); MCH 29.7 pg (26.0-34.0); MCHC 32.2 g/dL (31.0-37.0); MCV 92.4 fL (80.0-100.0); MEAN PLATELET VOLUME 10.2 fL (7.4-10.4); MONOCYTES 13.4 % (2-11); NEUTROPHILS 72.6 % (40-80); PLATELET COUNT 295 10x3/uL (130-400); RDW 14.8 % (11.5-14.5)
[2018-06-04 06:19] LABS: WBC 10.7 10x3/uL (4.8-10.8)
[2018-06-04 06:24] LABS: ANION GAP 10.7 mmol/L (8-16); CALCIUM 9.7 mg/dL (8.5-10.1); CARBON DIOXIDE 31.9 mmol/L (21.0-32.0); CREATININE - SERUM 0.8 mg/dL (0.6-1.3); POTASSIUM - SERUM 3.6 mmol/L (3.5-5.1)
[2018-06-04 08:00] VITALS: BP 160/80
[2018-06-04 19:45] VITALS: BP 154/77
[2018-06-05 08:00] VITALS: BP 145/73
--- NOTE | 2018-06-05 15:04 | RHP ---
PATIENT: KOFI CORTES MEDICAL RECORD: [id number] ACCOUNT: [id number] LOCATION:[facility] : [birth year] ADMISSION DATE: 05/28/18 REHABILITATION HISTORY AND PHYSICAL EXAMINATION POST ADMISSION PHYSICIAN EXAMINATION ADMITTING DIAGNOSIS: Cerebrovascular accident with a small area of acute and subacute ischemia in the left frontal lobe. HISTORY OF PRESENT ILLNESS: The patient admitted to the acute rehab for CVA. She has got a small area of acute and subacute ischemia in the left frontal lobe with right body involvement. She is an 83-year-old female who presented to the ED with right-sided weakness, slurred and garbled speech. She had a neurosurgery consult. They obtained an MRI that showed what appeared to be ischemia in the left frontal lobe. No other intracranial processes were noted. She was admitted to the ICU and remained there. During her acute hospital stay, she developed AFib and was placed on amiodarone drip. She had been evaluated by PT, OT, and speech therapy during her acute stay. She has past medical history of hypertension, gout, depression, thyroid problems, back pain, vitamin D deficiency, and gastroesophageal reflux disease. She continues to have apraxia in the right upper extremity with increased weakness in left extremity also, right more so than left. She has got expressive aphasia, oropharyngeal dysphagia, Broca's aphasia, and aphasia of speech. She is being complaining of some double vision. She has got AFib with tachycardia, currently on telemetry. She is receiving IV Solu-Medrol and increased amounts of anticoagulation therapy. She is getting increased pain, debility, and impaired mobility with gout flareup and self-care deficit. These are all barriers to her discharging back home. She lives alone in an apartment at [facility], was completely independent with her ADLs and mobility prior to this acute hospitalization. Currently, min assist to mod assist with her ADLs and mod assist to total assist with her mobility. She and her family plan to return back to her apartment and hopefully be set up with home health. COMORBIDITIES: In this patient, include oropharyngeal dysphagia, Broca's aphasia, aphasia of speech, acute CVA, facial droop, hypertension, gastroesophageal reflux disease, hypothyroidism, and right upper extremity apraxia. PAST MEDICAL HISTORY: Significant for hypertension, chronic back pain, gout, depression, thyroid problems, vitamin D deficiency, lipids, and gastroesophageal reflux disease. PAST SURGICAL HISTORY: Includes colon surgery and shoulder surgery. ALLERGIES: No known drug allergies. CURRENT MEDICATIONS: Include beta carotene and multivitamin daily; Synthroid 25 mcg daily along with 112, for total dose of 137 mcg daily; Pravachol 20 mg daily; potassium 8 mEq daily; Paxil 40 mg daily; Neurontin 100 mg daily; vitamin D 1000 units daily; Lotensin 20 mg daily; aspirin chewable 81 mg daily; Norvasc 5 mg daily; and allopurinol 100 mg daily. She is currently on an electrolyte replacement protocol. Amiodarone 200 mg b.i.d., polyethylene glycol 17 grams in 8 ounce of water daily and she is going to be on Eliquis 2.5 mg b.i.d. HABITS: No alcohol or tobacco use. HISTORY AND PHYSICAL [id number] SOPHIAKOFI FAMILY HISTORY: Noncontributory. SOCIAL HISTORY: The patient hopes to return back home per her family's desires. REVIEW OF SYSTEMS: GENERAL: The patient is having some problems with expressive aphasia at this time. PHYSICAL EXAMINATION: VITAL SIGNS: Stable. She is afebrile. GENERAL: A thin female, in no acute distress, alert upon exam. HEENT: Normocephalic and atraumatic. Mucosa moist. NECK: Supple. No lymphadenopathy. LUNGS: Clear at this time. HEART: Irregular rate and rhythm. ABDOMEN: Benign. EXTREMITIES: No clubbing, cyanosis, or edema. NEUROLOGIC: She does have noted weakness, especially on her right side. LABORATORY DATA: Her white count is 11.6, H&H of 11.2 and 33.6, and platelet count is 279. Her sodium is 138, potassium 4.6, BUN and creatinine of 45 and 1.1, and blood sugar is noted to be 135. ASSESSMENT: This is an 83-year-old female patient admitted to the rehab with working diagnosis of CVA, which is of new onset. The patient has potential to make improvement. We will institute the following multidisciplinary therapies including, but not limited to physical, occupational, respiratory, speech, nutritional services, prosthetics, and orthotics. Given her complex medical condition and risk for more complications, rehabilitation services cannot be provided at a low level of care such as nursing home facility. PLAN: 1. Admit to [facility] for intensive inpatient therapy to include the following disciplines: A. Physical therapy to improve gait, all transfer skills, and bed mobility to modified independent level. B. Occupational therapy to improve activities of daily living to a modified independent level. C. Case management to assist with discharge planning and placement options. D. Nutrition to assist with nutritional needs. E. Rehabilitation nursing to assist in monitoring the patient's underlying medical conditions and to assist with any type of bowel or bladder management. 2. The patient's current medications and medical care will be continued. We will get her back on medications that she was on upstairs in the ICU. 3. We will follow up in the a.m. and I have talked to her family. TRANSINT:[id number] Voice Confirmation ID: [id number] DOCUMENT ID: [id number] FAWAD notes whether there has been none or any medical/functional change since admission: - No change since prescreen. HISTORY AND PHYSICAL [id number] KOFI CORTES attests patient continues to be appropriate for IRF: - Continues to be appropriate. ANIRUDH WELCH MD at 1504 CC: [id number] DICTATION DATE: 05/29/18 1249 INFORMATICS PHYSICIAN LIAISON: 05/29/[address] [facility] [address] [place] [address]
[2018-06-05 19:00] VITALS: BP 177/83
[2018-06-06 07:18] LABS: BASOPHILS 0.1 % (0-2); EOSINOPHILS 0.1 % (0-7); HEMATOCRIT 32.4 % (36.0-48.0); HEMOGLOBIN 10.6 g/dL (12-16); IMMATURE GRANULOCYTES 0.6 % (0-5); LYMPHOCYTES 5.1 % (15-50); MCHC 32.7 g/dL (31.0-37.0); MCV 91.8 fL (80.0-100.0); MEAN PLATELET VOLUME 9.9 fL (7.4-10.4); MONOCYTES 2.8 % (2-11); NEUTROPHILS 91.3 % (40-80); PLATELET COUNT 298 10x3/uL (130-400); RBC 3.53 10x6/uL (4.00-5.40); RDW 15.1 % (11.5-14.5); WBC 9.3 10x3/uL (4.8-10.8)
[2018-06-06 07:31] LABS: ANION GAP 13.1 mmol/L (8-16); CALCIUM 9.6 mg/dL (8.5-10.1); CREATININE - SERUM 1.1 mg/dL (0.6-1.3); POTASSIUM - SERUM 4.1 mmol/L (3.5-5.1)
[2018-06-06 08:00] VITALS: BP 174/82
[2018-06-06 19:24] VITALS: BP 176/89
[2018-06-07 08:16] VITALS: BP 166/59
[2018-06-07 20:00] VITALS: BP 156/81
[2018-06-08 08:00] VITALS: BP 157/78
[2018-06-08 21:21] VITALS: BP 135/79
[2018-06-09 06:07] LABS: BASOPHILS 0 % (0-2); EOSINOPHILS 0.3 % (0-7); HEMATOCRIT 32.6 % (36.0-48.0); HEMOGLOBIN 10.4 g/dL (12-16); IMMATURE GRANULOCYTES 0.3 % (0-5); LYMPHOCYTES 5.9 % (15-50); MCH 29.2 pg (26.0-34.0); MCHC 31.9 g/dL (31.0-37.0); MCV 91.6 fL (80.0-100.0); MEAN PLATELET VOLUME 9.9 fL (7.4-10.4); MONOCYTES 6.7 % (2-11); NEUTROPHILS 86.8 % (40-80); PLATELET COUNT 331 10x3/uL (130-400); RBC 3.56 10x6/uL (4.00-5.40); WBC 11.9 10x3/uL (4.8-10.8)
[2018-06-09 06:18] LABS: ANION GAP 10.9 mmol/L (8-16); CALCIUM 10.2 mg/dL (8.5-10.1); POTASSIUM - SERUM 3.9 mmol/L (3.5-5.1)
[2018-06-09 08:22] VITALS: BP 175/82
[2018-06-09 19:45] VITALS: BP 168/79
[2018-06-10 07:02] LABS: BASOPHILS 0 % (0-2); EOSINOPHILS 0.5 % (0-7); HEMATOCRIT 35.5 % (36.0-48.0); HEMOGLOBIN 11.4 g/dL (12-16); IMMATURE GRANULOCYTES 0.6 % (0-5); LYMPHOCYTES 8.4 % (15-50); MCH 29.8 pg (26.0-34.0); MCHC 32.1 g/dL (31.0-37.0); MCV 92.9 fL (80.0-100.0); MEAN PLATELET VOLUME 10.1 fL (7.4-10.4); MONOCYTES 7.3 % (2-11); NEUTROPHILS 83.2 % (40-80); PLATELET COUNT 397 10x3/uL (130-400); RBC 3.82 10x6/uL (4.00-5.40); RDW 15.2 % (11.5-14.5); WBC 12.5 10x3/uL (4.8-10.8)
[2018-06-10 07:33] LABS: ANION GAP 13.1 mmol/L (8-16); CALCIUM 10.4 mg/dL (8.5-10.1); CREATININE - SERUM 1.1 mg/dL (0.6-1.3); POTASSIUM - SERUM 4.1 mmol/L (3.5-5.1)
[2018-06-10 08:00] VITALS: BP 162/91
[2018-06-10 19:00] VITALS: BP 179/79
[2018-06-11 08:00] VITALS: BP 153/77
[2018-06-11 22:19] VITALS: BP 140/75
[2018-06-12 08:45] VITALS: BP 131/60
[2018-06-12 20:00] VITALS: BP 168/72
[2018-06-13 07:11] LABS: BASOPHILS 0.1 % (0-2); EOSINOPHILS 3.8 % (0-7); HEMATOCRIT 30.5 % (36.0-48.0); HEMOGLOBIN 9.7 g/dL (12-16); IMMATURE GRANULOCYTES 0.4 % (0-5); LYMPHOCYTES 12.6 % (15-50); MCH 29.6 pg (26.0-34.0); MCHC 31.8 g/dL (31.0-37.0); MEAN PLATELET VOLUME 10.1 fL (7.4-10.4); MONOCYTES 13.4 % (2-11); NEUTROPHILS 69.7 % (40-80); RBC 3.28 10x6/uL (4.00-5.40); RDW 15.7 % (11.5-14.5); WBC 7.4 10x3/uL (4.8-10.8)
[2018-06-13 07:12] LABS: PLATELET COUNT 264 10x3/uL (130-400)
[2018-06-13 07:30] LABS: CALCIUM 9.2 mg/dL (8.5-10.1); CARBON DIOXIDE 29.9 mmol/L (21.0-32.0); CREATININE - SERUM 0.8 mg/dL (0.6-1.3); POTASSIUM - SERUM 3.9 mmol/L (3.5-5.1)
[2018-06-13 20:59] VITALS: BP 148/63
[2018-06-14 23:17] VITALS: BP 157/67
[2018-06-15 08:10] VITALS: BP 166/74
[2018-06-16 00:16] VITALS: BP 159/69
[2018-06-16 07:39] LABS: BASOPHILS 0.2 % (0-2); EOSINOPHILS 3.9 % (0-7); HEMATOCRIT 34.8 % (36.0-48.0); IMMATURE GRANULOCYTES 0.3 % (0-5); LYMPHOCYTES 11.6 % (15-50); MCH 29.4 pg (26.0-34.0); MCHC 31.6 g/dL (31.0-37.0); MEAN PLATELET VOLUME 10.6 fL (7.4-10.4); MONOCYTES 15.4 % (2-11); NEUTROPHILS 68.6 % (40-80); PLATELET COUNT 266 10x3/uL (130-400); RBC 3.74 10x6/uL (4.00-5.40); RDW 15.2 % (11.5-14.5); WBC 6.6 10x3/uL (4.8-10.8)
[2018-06-16 07:47] LABS: ANION GAP 11.4 mmol/L (8-16); CARBON DIOXIDE 30.4 mmol/L (21.0-32.0); CREATININE - SERUM 0.8 mg/dL (0.6-1.3); POTASSIUM - SERUM 3.8 mmol/L (3.5-5.1)
[2018-06-16 07:58] VITALS: BP 143/76
[2018-06-16 19:00] VITALS: BP 150/70
[2018-06-17 08:00] VITALS: BP 154/69
[2018-06-17 19:00] VITALS: BP 185/81
[2018-06-18] MEDS ORDERED: LOTENSIN 10 MG10 MG PO (08:01)
[2018-06-18] MEDS ORDERED: NORVASC10 MG PO (08:01)
[2018-06-18 08:23] LABS: BASOPHILS 0.3 % (0-2); EOSINOPHILS 4.6 % (0-7); HEMATOCRIT 28.5 % (36.0-48.0); IMMATURE GRANULOCYTES 0.2 % (0-5); LYMPHOCYTES 13.8 % (15-50); MCH 29.5 pg (26.0-34.0); MCHC 31.6 g/dL (31.0-37.0); MCV 93.4 fL (80.0-100.0); MEAN PLATELET VOLUME 10.3 fL (7.4-10.4); MONOCYTES 15.4 % (2-11); NEUTROPHILS 65.7 % (40-80); PLATELET COUNT 231 10x3/uL (130-400); RBC 3.05 10x6/uL (4.00-5.40); RDW 15.5 % (11.5-14.5)
[2018-06-18 08:26] LABS: ANION GAP 12.1 mmol/L (8-16); CALCIUM 9.6 mg/dL (8.5-10.1); CREATININE - SERUM 0.9 mg/dL (0.6-1.3); POTASSIUM - SERUM 4.1 mmol/L (3.5-5.1)
[2018-06-18 09:32] VITALS: BP 180/82
== END 2018-06-18 10:00 | DRG 57 ==
LOC: D.REHAB 15:29
PROVIDERS: ADMIT Emergency Medicine
DX: I69.392 Facial weakness following cerebral infarction (principal); R47.01 Aphasia; R13.12 Dysphagia, oropharyngeal phase; I10 Essential (primary) hypertension; K21.9 Gastro-esophageal reflux disease without esophagitis; E03.9 Hypothyroidism, unspecified; R48.2 Apraxia; R53.81 Other malaise